=== PATIENT | male | born 2000 | race Asian ===

== ENCOUNTER 2020-12-30 17:48 | Outpatient (CLI) | payer SELFPAY | END 2020-12-30 17:49 | disposition short-term general hospital (02) | LOC: EMS 17:48 | DX: S09.90XA Unspecified injury of head, initial encounter (principal); V59.49XA Driver of pick-up truck or van injured in collision with other motor vehicles in traffic accident, initial encounter; Y93.89 Activity, other specified; Y92.413 State road as the place of occurrence of the external cause | CPT/HCPCS: A0425; A0427 ==

== ENCOUNTER 2021-12-15 13:32 | Outpatient (CLI) | payer OTHER ==
[2021-12-15 21:31] VITALS: BP 118/68
--- NOTE | 2021-12-15 21:31 | SLEEP CARE CONSULTATION ---
Information from patient questionnaire entered by Todd Fernández. I have reviewed and concur with the information entered by Todd Fernández. This document represents the service I personally performed and the decisions made by me, Jennifer Bustos MD, [facility]. History of Present Illness Service Date and Time: 12/15/2021 1332 Reason for Visit: New patient Chief Complaint: reports: Insomnia, Unrefreshed sleep, Snoring, Excessive daytime sleepiness, Frequent awakenings at night Date of Onset: PAST 2 MONTHS Usual bedtime: 11PM Time it takes to fall asleep: 15 MINUTES Snores at night: Yes Sleeps alone due to snoring: No Number of times waking at night: 2-3 Reasons for waking at night: reports: Choking, Snoring, Other (UNKNOWN REASON) Toss, Turn, or Twitch while sleeping: Yes Recalls having dreams: No Usually gets out of bed at: 730 Feels refreshed in the morning: No Morning headache: No Sleepy or fatigued during the day: Yes Ever fallen asleep while driving: No Takes day naps: No Dreams during day naps: No Prior sleep studies: No Additional HPI information: I had the pleasure of seeing Mr. May today regarding the possibility of him having a sleep disorder. As you know, he is a 21-year-old gentleman who complains of insomnia involving frequent awakenings during the night. The patient tells me that he normally goes to bed around 11 pm, and it takes him approximately 15 minutes to fall asleep. He has been told that he snores loudly and irregularly at night. He has never been observed to stop breathing in his sleep. His bed partner can still sleep in the same bed. He can recall waking up on the average of 2 - 3 times during the night. Most of the time he wakes up because of his own snoring, choking, and having to gasp for air. There is a lot of tossing and turning in his sleep. He has somniloquy (sleep talking) but not somnambulism (sleep walking). Generally, there is no recollection of dreams. In the morning he usually gets up out of the bed around 7:30 a.m. not feeling refreshed nor rested. He usually does not have a morning headache. During the day he complains of feeling occasionally sleepy and fatigued. His score on [place] Sleepiness Scale is 10 out of 24. He never has fallen asleep while driving nor has had any accident due to sleepiness. He usually does not take naps during the day. Upon falling asleep during the day he denies having vivid dreams. He has never had sleep paralysis, experienced cataplexy or symptoms of restless leg syndrome. He reports having impaired concentration during the day. - Parasomnia Symptoms Ever been unable to move upon waking from sleep: Yes Walks in sleep: No Talks in sleep: Yes Ever acted out dreams in sleep: Yes Ever felt weak in the knees when startled or emotional: No Problems with memory or concentration: Yes Subjective Initial [place] Sleepiness Scale score: 10 (12/15/21) Social History The patient's occupation is a AM. Patient is Single and lives in . Have you smoked in the past 12 months: No Alcohol use: Yes Alcohol amount and frequency: 2 DRINKS A MONTH Caffeine use: Yes Caffeine amount and frequency: 1 DRINK FIVE DAYS A WEEK Family History Family history of sleep disordered breathing: Yes Family Hx Sleep Apnea: Father: Snoring Allergies and Home Medications Drug allergies reviewed: Yes Home medication list reviewed: Yes Review of Systems Cardiovascular: denies: high blood pressure, palpitations, chest pain, irregular heart rate or pulse, leg or foot swelling, have to sleep sitting up, other Respiratory: denies: shortness of breath, wheeze, sputum production, chronic cough, other Gastrointestinal: denies: heartburn, difficulty swallowing, nausea, vomitting, diarrhea, abdominal pain, other Urinary: denies: incontinence, frequency, urgency, impotence, other Neurological: reports: headaches Psychiatric: denies: Attention Deficit Hyperactivity, anxiety, depression, mood disorder, claustrophobia, other Ear/Nose/Throat: reports: nasal congestion, sinus problems Endocrine: denies: thyroid disease, history of goiter, sluggishness, too hot or cold, excessive thirst, increased appetite, increased urination, unexplained weakness, other Musculoskeletal: reports: neck pain, back pain Immunologic: reports: sneezing Physical Exam Vital signs obtained and entered by: SHERIE PERKINS Blood Pressure: 118/68 (RIGHT ARM ) Cuff size: regular Heart Rate: 86 O2 Saturation: 98 Height: 5 ft 6 in Weight: 146 lb Body Mass Index: 23.6 BMI Classification: Healthy weight Neck circumference: 14 (INCHES) Mood/affect: normal HEENT: No craniofacial malformation Nostrils: patent to airflow Turbinates: normal Septum: midline Mouth and throat: narrow oropharynx Soft palate: normal Hard palate: normal Uvula: normal Uvula visualization: 100% Mallampati Class I Tongue: normal in size Tonsils: 2+ Chin and jaw: normal size and position Neck: normal w/o lymphadenopathy or thyromegaly Heart: regular rate and rhythm Lungs: clear bilaterally Extremities: no edema or clubbing Neurologic: intact, no focal deficits Impression and Plan IMPRESSION: 1. Obstructive Sleep Apnea-Hypopnea Syndrome, as suggested by history of loud and irregular snoring, frequent awakenings during the night, nocturnal choking, unrefreshed sleep, and daytime hypersomnolence. His enlarged tonsils are a predisposing factor. I recommend proceeding to polysomnography to confirm the diagnosis and to assess severity. I informed the patient of what the sleep studies involve and after some discussion, he agreed to proceed. Plan: 1. Schedule polysomnography and return in 1 to 2 weeks after the study to discuss result and initiate therapy. 2. Avoid long distance driving or when feeling sleepy. 3. Avoid alcohol, sedative and muscle relaxant around bedtime. Follow up with Sleep Care in: 1-2 months Visit Type: In Office Time Spent with Patient (minutes): 20 Provider Statement: I spent 100% of the Face to Face Visit with the patient with greater than 50% spent counseling the patient and coordination of care.
== END 2021-12-15 13:33 | disposition home or self-care (01) ==
LOC: SC 13:32
PROVIDERS: ATTEND Internal Medicine Pulmonary Disease
DX: R06.83 Snoring (principal); G47.8 Other sleep disorders; G47.00 Insomnia, unspecified; R41.89 Other symptoms and signs involving cognitive functions and awareness; G47.10 Hypersomnia, unspecified
CPT/HCPCS: 99202; 99212

== ENCOUNTER 2021-12-27 20:30 | Outpatient (CLI) | payer OTHER | END 2021-12-27 20:31 | disposition home or self-care (01) | LOC: SC 20:30 | PROVIDERS: ATTEND Internal Medicine Pulmonary Disease | DX: G47.8 Other sleep disorders (principal) | CPT/HCPCS: 95810 ==

== ENCOUNTER 2022-03-02 11:29 | Outpatient (CLI) | payer OTHER ==
[2022-03-02 11:44] VITALS: BP 110/74
--- NOTE | 2022-03-02 11:44 | SLEEP CARE CONSULTATION ---
Information from patient questionnaire entered by Kaz Fleming. I have reviewed and concur with the information entered by Kaz Fleming. This document represents the service I personally performed and the decisions made by me, Jennifer Bustos MD, [facility]. History of Present Illness Service Date and Time: 03/02/2022 1129 Initial [place] Sleepiness Scale score: 10 (12/15/21) Current [place] Sleepiness Scale score: 11 (03/02/2022) Additional HPI information: Mr. May returned for follow up of the sleep study he had on 12-27-21. The polysomnography showed that the patient had normal sleep efficiency. The sleep architecture was relatively normal as well considering the first night effect. Respiratory monitoring showed evidence of upper airway resistance (AHI = 1.0 and = 6.1) and no hypoxia (hilary oxygen saturation of 92%). The respiratory slept mostly supine (supine AHI = 1.2; non-supine = 0.00). Snore was moderate in intensity. There was no significant periodic leg movement of sleep. Cardiac rhythm was normal sinus rhythm without significant arrhythmia. No abnormal behavior (parasomnia) observed during the night. The patient was informed of these findings. I explained to him that he does not have obstructive sleep apnea-hypopnea but there is some evidence of increased upper airway resistance at night. Sleep Study - Results Type of Sleep Study: Polysomnography (COMPLETED 12/27/2021) Prior sleep studies: No Allergies and Home Medications Drug allergies reviewed: Yes Home medication list reviewed: Yes Review of Systems Review of systems same as previous: Yes Physical Exam Vital signs obtained and entered by: KAZ Hess MA Blood Pressure: 110/74 (LEFT ARM) Cuff size: regular Heart Rate: 61 O2 Saturation: 98 Height: 5 ft 6 in Weight: 155 lb 9.6 oz Body Mass Index: 25.1 BMI Classification: Overweight Impression and Plan IMPRESSION: 1. Upper airway resistance syndrome, possibly causing of the nocturnal choking, unrefreshed sleep, and excessive daytime sleepiness. The patient would like to try the CPAP therapy which is reasonable. I will order him an autoCPAP set between 4 and 12 cmH2O. PLAN: 1. Prescription made for an autoCPAP, heated humidifier, and related supplies through [facility]. 2. Return for follow up after one month of using the CPAP. Prescriptions: Auto CPAP Follow up with Sleep Care in: 1-2 months Visit Type: In Office Time Spent with Patient (minutes): 15 Provider Statement: I spent 100% of the Face to Face Visit with the patient with greater than 50% spent counseling the patient and coordination of care.
== END 2022-03-02 11:30 | disposition home or self-care (01) ==
LOC: SC 11:29
PROVIDERS: ATTEND Internal Medicine Pulmonary Disease
DX: G47.8 Other sleep disorders (principal)
CPT/HCPCS: 99212

== ENCOUNTER 2022-06-15 14:25 | Outpatient (CLI) | payer OTHER ==
[2022-06-15 16:38] VITALS: BP 102/62
--- NOTE | 2022-06-15 16:38 | SLEEP CARE CONSULTATION ---
Information from patient questionnaire entered by Kaz Fleming. I have reviewed and concur with the information entered by Kaz Fleming. This document represents the service I personally performed and the decisions made by me, Jennifer Bustos MD, [facility]. History of Present Illness Service Date and Time: 06/15/2022 1425 Reason for follow up: first compliance Equipment type: CPAP (RESMED NEED MACHINE) Prior sleep studies: No Type of Sleep Study: Polysomnography (COMPLETED 12/27/2021) HPI additional information: Mr. May was diagnosed to have upper airway resistance syndrome and returns today for follow up of CPAP therapy. The patient purchased the device from [employer]. and was fitted with a ResMed F20 full face mask because he breathes through his mouth at night (he tried a nasal mask at first). He uses the AirSense 11 almost nightly and all through the night. The compliance report shows that he uses the device 27 nights out of the past 30 nights, averaging 7 hours a night. He complains of no particular problem with the device such as soreness on the face, dry nose, epistaxis, nasal congestion or headache. He thinks that the pressure of 4 - 12 cmH2O is comfortable. On the CPAP therapy he notices improvement in his sleep quality, and that he wakes up feeling fresher in the morning and more awake/alert during the day. His notices no snore at all. [place] Sleepiness Scale score is 8. The average residual AHI is 0.9; and average time in large leak per day is 0 minutes a night. The 90th percentile pressure is 7.5 cmH2O. Sleep Study - Results Type of Sleep Study: Polysomnography (COMPLETED 12/27/2021) Prior sleep studies: No Subjective Initial [place] Sleepiness Scale score: 10 (12/15/21) Current [place] Sleepiness Scale score: 8 (06/15/22) Allergies and Home Medications Drug allergies reviewed: Yes Home medication list reviewed: Yes Allergy and home medication list: Allergies No Known Drug Allergies Allergy (Verified 03/02/22 13:24) Review of Systems Review of systems same as previous: Yes Physical Exam Vital signs obtained and entered by: KAZ Hess MA Blood Pressure: 102/62 (LEFT ARM) Cuff size: regular Heart Rate: 85 O2 Saturation: 87 Height: 5 ft 6 in Weight: 147 lb Body Mass Index: 23.7 BMI Classification: Normal Impression and Plan IMPRESSION: 1. Upper airway resistance syndrome (RDI = 6.1), with the patient continuing to do well on nasal CPAP therapy. He has excellent compliance and significant clinical benefits. The current pressure appears effective and comfortable. Overall, he is very satisfied with treatment and plans to continue with it long-term. No adjustment is necessary today. PLAN: 1. Continue with autoCPAP set at 4 - 12 cm H2O. 2. Try to lose weight. 3. Return in one year for follow up or earlier if there is any problem with the treatment. Continue with device pressure at (cmH2O): 4 - 12 cmH20 Follow up with Sleep Care in: 1 year Visit Type: In Office Time Spent with Patient (minutes): 15 Provider Statement: I spent 100% of the Face to Face Visit with the patient with greater than 50% spent counseling the patient and coordination of care.
== END 2022-06-15 14:26 | disposition home or self-care (01) ==
LOC: SC 14:25
PROVIDERS: ATTEND Internal Medicine Pulmonary Disease
DX: G47.8 Other sleep disorders (principal)
CPT/HCPCS: 99212